=== PATIENT | female | born 2000 | race Caucasian/White ===

== ENCOUNTER 2018-08-10 22:11 | Emergency (ER) | payer BC ==
--- NOTE | 2018-08-10 22:30 | ER Report ---
History and Physical Time Seen By MD: 22:30 Hx. of Stated Complaint: uti has been seen by [facility] today, on an antibiotic, pain has gotten worse, pt has taken 2 of ibuprofen today for pain; pain has no gotten better HPI/ROS CHIEF COMPLAINT: left abdominal pain, urinary tract infection HISTORY OF PRESENT ILLNESS: This is a 17 year old female. She was seen by [facility] earlier today and diagnosed with urinary tract infection. She was started on Macrobid. She took the first dose this morning. Throughout the day, she is having increased pain in the lower abdomen and up to the upper left. She denies dysuria. She has been having normal bowels, which for her is about every 2 days. Denies fevers. No nausea or vomiting. Took ibuprofen x2 over the counter tablets without relief of pain. Is on her menses at this time as well. Allergies: Coded Allergies: No Known Drug Allergies (Unverified , 08/11/18) Home Meds Active Scripts Ondansetron (ZOFRAN ODT) 4 Mg Tab.rapdis, 4 MG PO Q6H PRN for NAUSEA/VOMITING, #10 TAB.BECKY 0 Refills Prov:AKASH MYRICK MD 08/11/18 Hydrocodone Bit/Acetaminophen (HYDROCODON-ACETAMINOPHEN 5-325) 1 Each Tablet, 1 EACH PO Q4H PRN for PAIN, #6 TAB 0 Refills Prov:AKASH MYRICK MD 08/11/18 Ciprofloxacin Hcl 500 Mg Tab (CIPRO 500 MG TAB) 500 Mg Tablet, 500 MG PO BID, #14 TAB 0 Refills Prov:AKASH MYRICK MD 08/11/18 Reviewed Nurses Notes: Yes Hx Substance Use Disorder: Yes (pot) Hx Alcohol Use: Yes Constitutional Vital Sign - Last 24 Hours 08/10/18 08/10/18 08/10/18 08/10/18 22:21 22:26 22:30 22:41 Temp 98.6 Pulse 90 103 97 Resp 18 B/P (MAP) 116/86 112/75 (87) Pulse Ox 92 94 96 O2 Delivery Room Air 08/10/18 08/10/18 08/10/18 08/10/18 22:56 23:00 23:11 23:23 Pulse 90 93 B/P (MAP) 103/75 (84) 105/73 (84) Pulse Ox 95 95 08/10/18 08/10/18 08/11/18 08/11/18 23:30 23:35 00:00 00:05 Pulse 83 80 B/P (MAP) 104/69 (81) 102/76 (85) Pulse Ox 95 Physical Exam General Appearance: The patient is alert. Acute distress due to pain. Eyes: Pupils are equal, round. No pallor, injection or icterus. ENT: Mucous membranes are moist. Normal oral mucosa. Posterior oropharynx is normal. Neck: Supple and non tender. Respiratory: Lungs are clear to auscultation. Cardiovascular: Regular rate and rhythm. No murmurs, gallops or rubs. Normal capillary refill. Gastrointestinal: Abdomen is soft, tender in left side of abdomen. Nondistended. Guarding, but no rebound. No masses or organomegaly. Normal active bowel sounds. No costovertebral angle tenderness with percussion. Neurological: Alert and oriented x3. No focal neurologic deficits in the extremities. Skin: Warm and dry. DIFFERENTIAL DIAGNOSIS: After history and physical exam, differential diagnosis was considered for abdominal pain including but not limited to gastroenteritis, colitis, diverticulitis, kidney stone and urinary tract infection. Medical Decision Making Data Points Result Diagram: 08/10/18225008/10/182250 Laboratory Hematology Test 08/10/18 22:15 08/10/18 22:51 Urine Color Straw Urine Clarity Clear Urine pH 7.0 pH (4.8-9.5) Urine Specific [place] 1.001 Urine Protein Negative mg/dL (NEGATIVE) Urine Glucose (UA) Negative mg/dL (NEGATIVE) Urine Ketones Negative mg/dL (NEGATIVE) Urine Blood Large (NEGATIVE) Urine Nitrite Negative (NEGATIVE) Urine Bilirubin Negative (NEGATIVE) Urine Urobilinogen Negative mg/dL (0.2-1.9) Urine Leukocyte Esterase Moderate (NEGATIVE) Urine RBC 2 /HPF (0-2/HPF) Urine WBC 35 /HPF (0-5/HPF) Urine Squamous Epithelial Cells Few /LPF (</=FEW) Urine Bacteria Negative /HPF (NONE-FEW) Urine Mucus None /HPF (NONE-FEW) Red Blood Count 5.09 M/uL (4.17-5.56) Mean Corpuscular Volume 89.6 fL (80.0-96.0) Mean Corpuscular Hemoglobin 30.8 pg (26.0-33.0) Mean Corpuscular Hemoglobin Concent 34.4 g/dL (32.0-36.0) Red Cell Distribution Width 13.5 % (11.5-14.5) Mean Platelet Volume 9.6 fL (7.2-11.1) Neutrophils (%) (Auto) 70.8 % (39.4-72.5) Lymphocytes (%) (Auto) 21.3 % (17.6-49.6) Monocytes (%) (Auto) 6.0 % (4.1-12.4) Eosinophils (%) (Auto) 1.6 % (0.4-6.7) Basophils (%) (Auto) 0.3 % (0.3-1.4) Nucleated RBC Relative Count (auto) 0.0 /100WBC Neutrophils # (Auto) 7.4 K/uL (2.0-7.4) Lymphocytes # (Auto) 2.2 K/uL (1.3-3.6) Monocytes # (Auto) 0.6 K/uL (0.3-1.0) Eosinophils # (Auto) 0.2 K/uL (0.0-0.5) Basophils # (Auto) 0.0 K/uL (0.0-0.1) Nucleated RBC Absolute Count (auto) 0.00 K/uL Sodium Level 139 mmol/L (137-145) Potassium Level 3.6 mmol/L (3.5-5.0) Chloride Level 103 mmol/L (98-107) Carbon Dioxide Level 24 mmol/L (22-31) Blood Urea Nitrogen 10 mg/dl (7-18) Creatinine 0.80 mg/dl (0.52-1.04) Glomerular Filtration Rate Calc > 60.0 Random Glucose 102 mg/dl (75-110) Calcium Level 9.4 mg/dl (8.4-10.2) Total Bilirubin 0.9 mg/dl (0.2-1.3) Aspartate Amino Transf (AST/SGOT) 23 U/L (0-35) Alanine Aminotransferase (ALT/SGPT) 25 U/L (0-56) Alkaline Phosphatase 65 U/L (0-126) Total Protein 7.6 g/dl (6.3-8.2) Albumin 4.2 g/dl (3.5-5.0) Chemistry Test 08/10/18 22:15 08/10/18 22:51 Urine Color Straw Urine Clarity Clear Urine pH 7.0 pH (4.8-9.5) Urine Specific [place] 1.001 Urine Protein Negative mg/dL (NEGATIVE) Urine Glucose (UA) Negative mg/dL (NEGATIVE) Urine Ketones Negative mg/dL (NEGATIVE) Urine Blood Large (NEGATIVE) Urine Nitrite Negative (NEGATIVE) Urine Bilirubin Negative (NEGATIVE) Urine Urobilinogen Negative mg/dL (0.2-1.9) Urine Leukocyte Esterase Moderate (NEGATIVE) Urine RBC 2 /HPF (0-2/HPF) Urine WBC 35 /HPF (0-5/HPF) Urine Squamous Epithelial Cells Few /LPF (</=FEW) Urine Bacteria Negative /HPF (NONE-FEW) Urine Mucus None /HPF (NONE-FEW) White Blood Count 10.4 k/uL (4.5-11.0) Red Blood Count 5.09 M/uL (4.17-5.56) Hemoglobin 15.7 g/dL (12.0-16.0) Hematocrit 45.6 % (34.0-47.0) Mean Corpuscular Volume 89.6 fL (80.0-96.0) Mean Corpuscular Hemoglobin 30.8 pg (26.0-33.0) Mean Corpuscular Hemoglobin Concent 34.4 g/dL (32.0-36.0) Red Cell Distribution Width 13.5 % (11.5-14.5) Platelet Count 227 K/uL (150-450) Mean Platelet Volume 9.6 fL (7.2-11.1) Neutrophils (%) (Auto) 70.8 % (39.4-72.5) Lymphocytes (%) (Auto) 21.3 % (17.6-49.6) Monocytes (%) (Auto) 6.0 % (4.1-12.4) Eosinophils (%) (Auto) 1.6 % (0.4-6.7) Basophils (%) (Auto) 0.3 % (0.3-1.4) Nucleated RBC Relative Count (auto) 0.0 /100WBC Neutrophils # (Auto) 7.4 K/uL (2.0-7.4) Lymphocytes # (Auto) 2.2 K/uL (1.3-3.6) Monocytes # (Auto) 0.6 K/uL (0.3-1.0) Eosinophils # (Auto) 0.2 K/uL (0.0-0.5) Basophils # (Auto) 0.0 K/uL (0.0-0.1) Nucleated RBC Absolute Count (auto) 0.00 K/uL Glomerular Filtration Rate Calc > 60.0 Calcium Level 9.4 mg/dl (8.4-10.2) Total Bilirubin 0.9 mg/dl (0.2-1.3) Aspartate Amino Transf (AST/SGOT) 23 U/L (0-35) Alanine Aminotransferase (ALT/SGPT) 25 U/L (0-56) Alkaline Phosphatase 65 U/L (0-126) Total Protein 7.6 g/dl (6.3-8.2) Albumin 4.2 g/dl (3.5-5.0) Urinalysis Test 08/10/18 22:15 Urine Color Straw Urine Clarity Clear Urine pH 7.0 pH (4.8-9.5) Urine Specific [place] 1.001 Urine Protein Negative mg/dL (NEGATIVE) Urine Glucose (UA) Negative mg/dL (NEGATIVE) Urine Ketones Negative mg/dL (NEGATIVE) Urine Blood Large (NEGATIVE) Urine Nitrite Negative (NEGATIVE) Urine Bilirubin Negative (NEGATIVE) Urine Urobilinogen Negative mg/dL (0.2-1.9) Urine Leukocyte Esterase Moderate (NEGATIVE) Urine RBC 2 /HPF (0-2/HPF) Urine WBC 35 /HPF (0-5/HPF) Urine Squamous Epithelial Cells Few /LPF (</=FEW) Urine Bacteria Negative /HPF (NONE-FEW) Urine Mucus None /HPF (NONE-FEW) EKG/Imaging Imaging COMPUTED TOMOGRAPHY ABDOMEN AND PELVIS WITH INTRAVENOUS CONTRAST DATE OF EXAM: 08/10/2018 11:20 PM INDICATION: Left abdominal pain. COMPARISON: None. TECHNIQUE: Contrast enhanced abdomen and pelvis CT performed during the injection of 75 ml of Isovue 370. Sagittal and coronal reconstructions were performed. One of the following dose optimization techniques was utilized in the performance of this exam: Automated exposure control; adjustment of the mA and/or kV according to the patient's size; or use of an iterative reconstruction technique. Specific details can be referenced in the facility's radiology CT exam operational policy. FINDINGS: Lung bases: Clear. Liver and hepatic vasculature: Normal. Gallbladder and bile ducts: Normal. Spleen: Normal. Pancreas: Normal. Adrenals: Normal. Kidneys, ureters and bladder: No hydronephrosis or hydroureter. No suspicious lesion. Urinary bladder appears thick-walled, and the bladder urothelium may be slightly hyperenhancing. Retroperitoneum and aorta: Normal aorta. Circumaortic left renal veins. No adenopathy. GI tract, mesentery and peritoneum: No evidence of obstruction. No pneumatosis or pneumoperitoneum. Normal appendix. Uterus and adnexa: Trace free fluid in the pelvis may be reactive or physiologic. Otherwise normal. Bones and soft tissues: No acute abnormality or suspicious lesion. Transitional lumbosacral vertebra. IMPRESSION: Question cystitis. Correlate with urinalysis and history. Report Dictated By: Chandrakant Baeza MD at 08/10/2018 11:43 PM ED Course/Re-evaluation Clinical Indication for ER IV: IV Access ED Course After initial evaluation, the patient did not want anything for pain. Labs and imaging negative for other acute problem. Discussed with patient. Will switch from Macrobid to Cipro and provided Lortab and Zofran for pain and nausea. Decision to Disposition Date: Aug 11, 2018 Decision to Disposition Time: 00:07 Depart Departure Latest Vital Signs Vital Signs Date Time Temp Pulse Resp B/P (MAP) Pulse Ox O2 Delivery O2 Flow Rate FiO2 08/11/18 00:05 80 08/11/18 00:00 102/76 (85) 08/10/18 23:35 95 08/10/18 22:21 98.6 18 Room Air Impression: Primary Impression: Urinary tract infection Condition: Improved Disposition: HOME OR SELF-CARE New Scripts Ondansetron (ZOFRAN ODT) 4 Mg Tab.rapdis 4 MG PO Q6H PRN for NAUSEA/VOMITING, #10 TAB.BECKY 0 Refills Prov: AKASH MYRICK MD 08/11/18 Hydrocodone Bit/Acetaminophen (HYDROCODON-ACETAMINOPHEN 5-325) 1 Each Tablet 1 EACH PO Q4H PRN for PAIN, #6 TAB 0 Refills Prov: AKASH MYRICK MD 08/11/18 Ciprofloxacin Hcl 500 Mg Tab (CIPRO 500 MG TAB) 500 Mg Tablet 500 MG PO BID, #14 TAB 0 Refills Prov: AKASH MYRICK MD 08/11/18 Patient Instructions: Urinary Tract Infection in Women (ED) Additional Instructions: Take Cipro 500mg twice a day for 7 days. Lortab 5/325, one every 4 hours as needed for severe pain. Ibuprofen 200mg over the counter tablets, take 3 tablets every 6 hours as needed for pain. Zofran 4mg, one every 6 hours as needed for nausea or vomiting. Problem Qualifiers Primary Impression: Urinary tract infection Urinary tract infection type: acute cystitis Hematuria presence: without hematuria Qualified Codes: N30.00 - Acute cystitis without hematuria AKASH MYRICK MD Aug 10, 2018 22:30
[2018-08-10] MEDS ORDERED: IOPAMIDOL 76% 75 ML INFUS BTL 75 ML ONE (22:51)
[2018-08-10 23:09] LABS: PLATELET COUNT, AUTOMATED 227 K/uL (150-450)
--- NOTE | 2018-08-10 23:53 | RADIOLOGY IMAGING REPORT ---
FAC[place] [facility] [place] NAME: Monique Farmer : 2000 MR: [id number] V: [id number] EXAM DATE: [id number] ORDERING PHYSICIAN: AKASH MYRICK TECHNOLOGIST: Location: [facility] Patient: Monique Farmer : 2000 Visit/Account:[id number] Date of Sevice: 08/10/2018 COMPUTED TOMOGRAPHY ABDOMEN AND PELVIS WITH INTRAVENOUS CONTRAST DATE OF EXAM: 08/10/2018 11:20 PM INDICATION: Left abdominal pain. COMPARISON: None. TECHNIQUE: Contrast enhanced abdomen and pelvis CT performed during the injection of 75 ml of Isovue 370. Sagittal and coronal reconstructions were performed. One of the following dose optimization te chroddyques was utilized in the performance of this exam: Automated exposure control; adjustment of the mA and/or kV according to the patient's size; or use of an iterative reconstruction technique. [facility] details can be referenced in the facility's radiology CT exam operational policy. FINDINGS: Lung bases: Clear. Liver and hepatic vasculature: Normal. Gallbladder and bile ducts: Normal. Spleen: Normal. Pancreas: Normal. Adrenals: Normal. Kidneys, ureters and bladder: No hydronephrosis or hydroureter. No suspicious lesion. Urinary blad jagjit appears thick-walled, and the bladder urothelium may be slightly hyperenhancing. Retroperitoneum and aorta: Normal aorta. Circumaortic left renal veins. No adenopathy. GI tract, mesentery and peritoneum: No evidence of obstruction. No pneumatosis or pneumoperitoneum. Normal appendix. Uterus and adnexa: Trace free fluid in the pelvis may be reactive or physiologic. Otherwise normal. Bones and soft tissues: No acute abnormality or suspicious lesion. Transitional lumbosacral vertebr a. IMPRESSION: Question cystitis. Correlate with urinalysis and history. Report Dictated By: Chandrakant Baeza MD at 08/10/2018 11:43 PM Report E-Signed By: Chandrakant Baeza MD at 08/10/2018 11:49 PM WSN:[id number]
[2018-08-11] VITALS: BP 102/76
[2018-08-11] MEDS ORDERED: ONDANSETRON 4 MG ODT TH SL ONE (00:05)
[2018-08-11] MEDS ORDERED: CIPROFLOXACIN 500 MG TAB PO ONE (00:05)
[2018-08-11] MEDS ORDERED: ACET/HYDROC 5/325MG TH ER ONLY 2 TAB/BOTTLE PO ONE (00:05)
[2018-08-11] MEDS ORDERED: CIPR-344 PO (00:08)
[2018-08-11] MEDS ORDERED: LOR5/325 PO (00:10)
[2018-08-11] MEDS ORDERED: ONDA4TAB PO (00:10)
== END 2018-08-11 00:22 | disposition home or self-care (01) ==
LOC: ER 22:31
DX: N30.00 Acute cystitis without hematuria (principal)
CPT/HCPCS: 74177; 81001; 85025; 87088; 99284; Q9967; S0119; 82040; 82247; 82310; 82374; 82435; 82565; 82947; 84075; 84132; 84155; 84295; 84450; 84460; 84520; 87077; 87186